=== PATIENT | female | born 1950 | race Caucasian/White ===

== ENCOUNTER 2024-05-25 11:00 | Outpatient (AMB) | payer MEDICARE, SELFPAY ==
--- NOTE | 2024-05-25 11:04 | A.OFFVIS_ITS ---
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 Pt states she does exercises every morning and one day she got sharp pain in her right knee. She also states her left knee has been bothersome as well but denies any pain currently in either knee. Pt states she had a sprained meniscus in her right knee 10-15 years ago but denies any injections in either leg. She would like to return to her exercise program. Allergies propoxyphene [From Darvon] Allergy (Intermediate, Verified 05/25/24 11:16) Nausea and Vomiting Medication List - Last Reconciled 05/25/24 by Jarvis Caldera MD amlodipine 10 mg PO DAILY hydrochlorothiazide 25 mg PO DAILY losartan 100 mg PO DAILY Physical Exam Const Other: Well-nourished well-developed very friendly female awake alert and oriented x3 in no acute distress Extrem Other: Bilateral lower extremity examination shows good capillary refill, no skin les ions noted, normal sensation light touch Bilateral knee examination shows minimal effusions, minimal crepitus with range of motion, negative Alden's test, mild tenderness to palpation over her right knee medial joint line and medial collateral ligament, no instability Results Reviewed Results Reviewed: X-rays of the patient's bilateral knee show mild joint space narrowing, no acute bony abnormalities Assessment & Plan Assessment & Plan (1) Right knee pain: Code(s): M25.561 - Pain in right knee Category: Medical (2) Left knee pain: Code(s): M25.562 - Pain in left knee Category: Medical Plan Ms. Tripathi presents with intermittent knee pain, right greater than left, most likely due to strain of her medial collateral ligament versus possible medial meniscus tearing. At this point the patient's symptoms are tolerable to her. We will hold off on a cortisone injection. Activity modifications were discussed at length with the patient. She will follow up with me on an as- needed basis should her symptoms worsen in any way. Feel free to call me at any time should questions her orthopedic management arise. I spent 21 minutes in reviewing the patient's records and imaging studies, seeing the patient and documenting in the medical record. Orders: Orders XR knee LT 3V Today M25.562 - Pain in left knee XR knee RT 3V Today M25.561 - Pain in right knee Coding Level of Care Code New Pt Level 3 (01708) Diagnoses Right knee pain M25.561 Left knee pain M25.562
== END 2024-05-25 11:38 | disposition home or self-care (01) ==
PROVIDERS: PCP Internal Medicine; Visit Provider Orthopaedic Surgery
DX: M25.561 Pain in right knee (principal); M25.562 Pain in left knee
CPT/HCPCS: 99203

== ENCOUNTER 2024-05-25 11:39 | Outpatient (REF) | payer MEDICARE, SELFPAY ==
--- NOTE | ~2024-05-25 | XR_ITS ---
EXAMINATION: XR BILATERAL KNEES COMPARISON: None available. INDICATION: Pain bilateral knees. TECHNIQUE: 3 views of each knee. FINDINGS: RIGHT KNEE: Small joint effusion. Mild narrowing of the tricompartments with minimal marginal spurring. Diffuse demineralization. LEFT KNEE: Small joint effusion. Mild narrowing of the tricompartments with minimal marginal spurring. Diffuse demineralization. 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
--- NOTE | ~2024-05-25 | XR_ITS ---
EXAMINATION: XR BILATERAL KNEES COMPARISON: None available. INDICATION: Pain bilateral knees. TECHNIQUE: 3 views of each knee. FINDINGS: RIGHT KNEE: Small joint effusion. Mild narrowing of the tricompartments with minimal marginal spurring. Diffuse demineralization. LEFT KNEE: Small joint effusion. Mild narrowing of the tricompartments with minimal marginal spurring. Diffuse demineralization. XR/XR knee LT 3V IMPRESSION: Mild degenerative changes in the bilateral knees.
== END 2024-05-25 11:40 | disposition home or self-care (01) ==
LOC: HO.HOSX 11:39
PROVIDERS: Visit Provider Orthopaedic Surgery
DX: M25.562 Pain in left knee (principal); M25.561 Pain in right knee
CPT/HCPCS: 73562; 99202